=== PATIENT | male | born 1965 | race African-American/Black ===

== ENCOUNTER 2018-03-31 15:45 | Emergency (ER) | payer BC ==
[~2018-03-31] VITALS: Ht 165.1 cm; Wt 74.8 kg
[2018-03-31 15:55] VITALS: BP_SYST 165
[2018-03-31] MEDS ORDERED: MORPHINE 4 MG/ML INJ. SYRINGE IM ONE (16:15)
[2018-03-31] MEDS ORDERED: CYCLOBENZAPRINE HCL 10 MG TABLET (FLEXERIL) PO ONE (16:15)
[2018-03-31] MEDS ORDERED: fentaNYL CITRATE/PF 100 MCG/2 ML AMP IVP ONE (17:00)
[2018-03-31] MEDS ORDERED: KETOROLAC TROMETHAMINE 30 MG VIAL IVP ONE (17:00)
[2018-03-31 18:15] VITALS: BP_SYST 159
[2018-03-31 18:39] LABS: BILIRUBIN,URINE NEGATIVE (NEGATIVE); BLOOD, URINE NEGATIVE (NEGATIVE); CLARITY/URINE CLEAR (CLEAR); COLOR,URINE YELLOW (YELLOW); GLUCOSE,URINE NEGATIVE (NEGATIVE); KETONES,URINE TRACE (NEGATIVE); LEUKOCYTE ESTERASE ,URINE NEGATIVE (NEGATIVE); NITRITE, URINE NEGATIVE (NEGATIVE); PH,URINE 6.5 (5.0-8.0); PROTEIN URINE NEGATIVE (NEGATIVE); UROBILINOGEN,URINE 0.2 (0.2-1.0)
== END 2018-03-31 18:15 | disposition home or self-care (01) ==
LOC: SED 15:45
DX: M25.552 Pain in left hip (principal); M25.551 Pain in right hip; I10 Essential (primary) hypertension
CPT/HCPCS: 73030; 73502; 74176; 81003; 96372; 96374; 96375; 99284; J1885; J2270; J3010